=== PATIENT | male | born 1960 | race African-American/Black ===

== ENCOUNTER 2023-06-25 20:47 | Emergency (ER) | payer MEDICARE, MEDICAID ==
[~2023-06-25] VITALS: Ht 193 cm; Wt 129.0 kg
[~2023-06-25 20:47] MED LIST: CARI250T PO; TRAM50TA94 PO; XAR15 MT
[2023-06-25 20:50] VITALS: TEMP 98.6; O2SAT 96
[2023-06-25 21:43] LABS: CHLORIDE 109 mEq/L (98-107)
[2023-06-26 01:35] VITALS: BP 133/77; PULSE 58; RESP 14
== END 2023-06-26 05:00 | disposition home or self-care (01) ==
LOC: ER 20:47
DX: F14.10 Cocaine abuse, uncomplicated (principal); R06.02 Shortness of breath
CPT/HCPCS: 36415; 80053; 83880; 84484; 93005; 99284